=== PATIENT | male | born 1980 | race American Indian/Alaskan Native ===

== ENCOUNTER 2019-01-08 07:12 | Day surgery (SDC) | payer MEDICARE ==
[2019-01-08 07:59] LABS: Basophils % (Auto) 0.6 % (0.0-1.8); Eosinophils # (Auto) 0.4 K/mm3 (0.0-0.4); Hemoglobin 10.3 gm/dl (11.8-15.2); Lymphocytes # (Auto) 0.7 K/mm3 (1.2-5.4); Lymphocytes % (Auto) 12.2 % (13.4-35.0); Mean Corpuscular HGB Conc 32 % (32-34); Mean Corpuscular Volume 88 fl (84-94); Monocytes # (Auto) 0.5 K/mm3 (0.0-0.8); Platelet Count 225 K/mm3 (140-440); Red Blood Count 3.64 M/mm3 (3.65-5.03)
[2019-01-08] MEDS ORDERED: NACL 0.9% 500 ML 500 ML IV SCH (08:00)
[2019-01-08] MEDS ORDERED: NACL 0.9% 1000 ML 1,000 ML IV SCH (08:00)
[2019-01-08 08:12] LABS: INR 1.09 (0.87-1.13)
[2019-01-08 08:13] LABS: Calcium 7.6 mg/dL (8.4-10.2); Partial Thromboplastin Time 34.2 Sec. (24.2-36.6)
[2019-01-08] MEDS ORDERED: HEPARIN 10,000 UNITS/10 ML ONE (08:42)
[2019-01-08] MEDS ORDERED: SUBLIMAZE ONE ×2 (08:42→10:29)
[2019-01-08] MEDS ORDERED: HEPARIN/NS 5000 UNIT/500ML(CATH LAB) 1,000 ML IR ONE (08:42)
[2019-01-08] MEDS ORDERED: DILAUDID ONE ×2 (08:43→10:34)
[2019-01-08] MEDS ORDERED: ANCEF/STERILE WATER 2 GM/20 ML 2 GM/20 ML SYRINGE IV ONE (08:43)
[2019-01-08] MEDS ORDERED: NACL 0.9% 500 ML 0 ML ONE (08:43)
[2019-01-08] MEDS ORDERED: ZOFRAN ONE (08:44)
[2019-01-08] MEDS ORDERED: ZOFRAN IV NR ×2 (09:01→11:00)
[2019-01-08] MEDS ORDERED: DILAUDID IV NR (09:01)
--- NOTE | 2019-01-08 09:05 | Short Stay Summary ---
Short Stay Documentation Date of service: 01/08/19 Narrative H&P: 38 year old male with ESRD and HIV who presents for nonhealing ulceration of the bilateral lower extremity ulcers with swelling and elements of rest pain of the left lower extremity. Nonpalpable pedal pulses. - History Principal diagnosis: PVD with ulceration of both feet H&P: obtained from office Past Medical History: dialysis, ESRD, HIV/AIDS Past Surgical History: Other (AV access creation) - Allergies and Medications Current Medications: Allergies No Known Allergies Allergy (Unverified 01/08/19 07:13) Home Medications Medication Instructions Recorded Confirmed Last Taken Type Clindamycin HCl 300 mg PO TID 01/08/19 01/08/19 01/07/19 21:00 History 300mg Darunavir/Cobicistat (Nf) 1 tab PO DAILY 01/08/19 01/08/19 01/07/19 History [Prezcobix 800 mg-150 mg (Nf)] 1 tab Gabapentin [Neurontin] 600 mg PO HS 01/08/19 01/08/19 01/07/19 History 300mg Ibuprofen 800 mg PO TID 01/08/19 01/08/19 01/07/19 21:00 History 800mg Oxycodone HCl/Acetaminophen 1 tab PO Q6H 01/08/19 01/08/19 01/07/19 History [Percocet 7.5/325 mg] 1800 Raltegravir Potassium [Isentress 1 tab PO BID 01/08/19 01/08/19 01/07/19 History Hd] 1 tab Active Medications Hydromorphone HCl (Dilaudid) 0.5 mg IV ONCE ONE Stop: 01/08/19 09:02 Sodium Chloride (Nacl 0.9% 500 Ml) 500 mls @ 50 mls/hr IV DIRECT EDGARD Ondansetron HCl (Zofran) 4 mg IV ONCE ONE Stop: 01/08/19 09:02 - Physical exam General appearance: no acute distress Lungs: Normal air movement Gastrointestinal: normal Extremities: normal temperature, normal color, abnormal (nonpalpable pedal pulses) - Brief post op/procedure progress note Date of procedure: 01/08/19 Pre-op diagnosis: PVD with nonhealing lower extremity ulcerations Post-op diagnosis: same Procedure: revascularization of the left lower extremity Anesthesia: local (w/ conscious sedation) Surgeon: KISHAN SMITH Estimated blood loss: minimal Condition: stable - Hospital course Hospital course: Patient tolerated procedure well. - Disposition Condition at discharge: Stable Disposition: DC-01 TO HOME OR SELFCARE - Discharge Diagnoses (1) Atherosclerotic PVD with ulceration Status: Acute (2) ESRD (end stage renal disease) on dialysis Status: Acute (3) HIV (human immunodeficiency virus infection) Status: Acute Short Stay Discharge Plan Activity: advance as tolerated Weight Bearing Status: Weight Bear as Tolerated Diet: renal Wound: keep clean and dry, other (remove pressure dressing 01/09/19 in AM, take ASA and plavix daily, do not use heparin for the next 3 dialysis sessions, do not lift more than 10 lbs for 1 week, do not walk up stairs for one week, be careful with right groin/leg for one week) Follow up with: ENEDELIA MCINTOSH MD [Other] - 7 Days Forms: Post Arteriogram Instruct Prescriptions: Aspirin EC [Aspirin Enteric Coated TAB] 81 mg PO QDAY #30 tablet. oxyCODONE /ACETAMINOPHEN [Percocet 5/325 mg] 1 tab PO Q6HR PRN #20 tablet PRN Reason: Pain Clopidogrel [Plavix] 75 mg PO QDAY #30 tablet
[2019-01-08] MEDS: VERSED ONE ×6 (09:25→10:23)
[2019-01-08] MEDS: XYLOCAINE 2% INFILTRATI ONE ×2 (09:45→09:50)
[2019-01-08] MEDS: SUBLIMAZE ONE ×5 (09:48→10:23)
[2019-01-08] MEDS ORDERED: PLAVIX ONE (10:57)
[2019-01-08] MEDS ORDERED: BABY ASPIRIN ONE (10:57)
[2019-01-08] MEDS ORDERED: PERCOCET 5/325 ONE (11:31)
[2019-01-08] MEDS ORDERED: PERCOCET 5/325 PO NR (12:00)
--- NOTE | 2019-01-08 14:08 | Operative Report ---
Operative Report Operative Report: EXAM: 1. Ultrasound-guided access of the right common femoral artery. 2. Angiography of the lower extremity. 3. Selection of the abdominal aorta with angiography 4. Selection of the left external iliac artery, common femoral artery, superficial femoral artery, and popliteal artery with angiography of the left lower extremity 5. Deployment of a 6 mm spider EPD in the left below the knee popliteal artery 6. Atherectomy of the left fubwh-zrk-[id number] popliteal artery with a LS Hawkone device with angioplasty with a 6 mm x 80 mm iNPACT DCB 7. Atherectomy of the left distal superficial femoral artery with a LS Hawkone device with angioplasty with a 6 mm x 150 mm iNPACT DCB 8. Capture of the embolic protection device 9. Closure of the right common femoral artery with a 6 [place] Angio-Seal DATE: 01/08/19 TRAP SETTER: KISHAN SMITH MD INDICATION: 38-year-old male with nonpalpable pedal pulses with end-stage renal disease and HIV with nonhealing bilateral lower extremity wounds MEDICATIONS: Please see nursing report for full details. DEVICES: 6 mm spider EPD 6 mm x 80 mm iNPACT DCB 6 mm x 150 mm iNPACT DCB LS Hawkone device 6 Fr angioseal CONTRAST: Please see labels molder report for full details. PROCEDURE: The risks, benefits, and alternatives were discussed with the patient; written informed consent was obtained. The risks, benefits, and alternatives were discussed with the patient for drug-coated technology with critical limb ischemia; written informed consent was obtained. The patient was brought to the cath room and prepped and draped in sterile fashion with both points prepped and draped. The right common femoral artery was assessed with ultrasound was patent. Under direct ultrasound guidance, the right common femoral artery was accessed with a 21-gauge micropuncture needle. 0.018 inch wire was passed into the aorta. Needle was exchanged for a 5 [place] transitional dilator. Wire was exchanged for 0.035 inch wire. Transitional dilators exchange for 5 [place] sheath. Digital subtraction angiography was performed through the sheath demonstrating an appropriate puncture, above the bifurcation and below the inferior epigastric artery. The right external iliac artery, common femoral artery, profunda femoral artery, and proximal superficial femoral artery were patent. The access was appropriate, above the bifurcation and below the inferior epigastric artery. Digital subtraction angiography was performed to the sheath demonstrate the runoff. The right proximal and mid superficial femoral artery were patent. The distal superficial femoral artery had a focal 50% narrowing and the iwgwu-kvy-xxml popliteal artery had 2 focal 60% narrowing's, one in the mid pop liteal segment and 1 in the above the knee popliteal segment. The below the knee popliteal artery was patent. The anterior tibial artery, tibial peroneal trunk, posterior tibial artery, and peroneal artery were patent. The abdominal aorta was selected and digital subtraction angiography was performed demonstrating patency of the abdominal aorta. The renal arteries were diminutive in size compatible with end-stage renal disease. The bilateral common iliac artery have some peripheral calcifications which resulted in 10% narrowing. The right internal iliac artery has 30% peripheral calcification resulting in narrowing. The bilateral external iliac arteries are patent. The left external iliac artery selected and the left common femoral artery was selected. Digital subtraction angiography was performed demonstrating patency of the left common femoral artery, profunda femoral artery, and proximal superficial femoral artery. The superficial femoral artery was selected. Digital subtraction angiography was performed and ensuring patency of the mid superficial femoral artery. The distal superficial femoral artery had a 50% narrowing that spanned 5-6 cm within the vessel. The dgvkf-wgl-fbkj popliteal artery had a 50% narrowing that spanned 4-5 cm within the vessel. The rest the popliteal artery was patent. The anterior tibial artery, tibial peroneal trunk, posterior tibial artery, and peroneal artery were patent. Patient was heparinized. Sheath was exchanged for a 7 [place] 45 cm [place] destination positioned in the left proximal superficial femoral artery. 6 mm spider embolic protection device was deployed in the below the knee popliteal artery. Atherectomy was then performed of the cvuto-puj-oikd popliteal artery until he was less than 30% residual narrowing. Atherectomy was then performed of the distal superficial femoral artery until there was less than 30% residual narrowing. 6 mm x 150 mm iNPACT balloon was then used to perform angioplasty of the distal superficial femoral artery and 6 mm x 80 mm iNPACT balloon was then used to perform angioplasty of the pybga-dyx-fjfe popliteal artery. Digital subtraction angiography was performed demonstrating less than 10% residual narrowing of the distal superficial femoral artery and the popliteal artery. There is no distal embolization or significant embolic material in the embolic protection device. The embolic protection device was then retrieved. Digital subtraction angiography was performed demonstrating no distal embolization with unchanged runoff. At this point, all wires, catheters, and sheath was retracted the right external iliac artery. Sheath was exchanged for a 6 [place] Angio-Seal which was deployed achieving immediate hemostasis. Standard ultrasound was used to evaluate the site demonstrating appropriate closure. Sterile dressing applied. Pressure dressing applied. Patient tolerated the procedure well. No immediate postprocedural complication. Patient was loaded with aspirin and Plavix. FINDINGS: Please see procedure above. IMPRESSION: 1. Successful bilateral lower extremity angiography and abdominal aorta angiography. 2. Successful atherectomy and drug-coated angioplasty of the left superficial femoral artery and popliteal artery. 3. Successful closure with a 6 [place] Angio-Seal.
[2019-01-08 14:21] VITALS: BP 110/78
--- NOTE | 2019-01-08 18:59 | Vascular Lab Report ---
PROCEDURE: VL VENOUS DUPLEX LE LT HISTORY: swelling FINDINGS: Real-time ultrasound of the left leg was performed using grayscale and color Doppler images . These images demonstrate no evidence of deep thrombus in left common femoral vein, superficial femora l vein, popliteal vein or posterior tibial vein. IMPRESSION: No DVT in left leg This document is electronically signed by Ravinder Hernandez MD., January 08 2019 06:57:58 PM ET
== END 2019-01-08 14:50 | disposition home or self-care (01) ==
LOC: CATHLABREC 07:12
PROVIDERS: ATTEND Radiology Diagnostic Radiology
DX: I87.333 Chronic venous hypertension (idiopathic) with ulcer and inflammation of bilateral lower extremity (principal); I70.203 Unspecified atherosclerosis of native arteries of extremities, bilateral legs; N18.6 End stage renal disease; I50.9 Heart failure, unspecified; K21.9 Gastro-esophageal reflux disease without esophagitis; Z99.2 Dependence on renal dialysis; Z79.899 Other long term (current) drug therapy; Z79.82 Long term (current) use of aspirin; Z98.890 Other specified postprocedural states
CPT/HCPCS: 36415; 37225; 75630; 75716; 76937; 80048; 85025; 85610; 85730; 93971; 96374; 96375; 99156; 99157; C1714; C1760; C1769; C1884; C1887; C2623; J0690; J1170; J1644; J2250; J2405; J3010; J7040; Q9967

== ENCOUNTER 2019-01-23 07:02 | Day surgery (SDC) | payer MEDICARE ==
[2019-01-23] MEDS ORDERED: SUBLIMAZE ONE (07:24)
[2019-01-23] MEDS ORDERED: DIPRIVAN 10 MG/ML IV ONE ×5 (07:24→07:40)
[2019-01-23] MEDS ORDERED: VERSED ONE ×2 (07:24→08:48)
[2019-01-23 07:58] LABS: INR 1.05 (0.87-1.13)
[2019-01-23 07:59] LABS: Partial Thromboplastin Time 34.7 Sec. (24.2-36.6)
[2019-01-23 08:11] LABS: Hematocrit 33.9 % (35.5-45.6); Hemoglobin 10.8 gm/dl (11.8-15.2); Mean Corpuscular HGB Conc 32 % (32-34); Mean Corpuscular Volume 88 fl (84-94); Platelet Count 225 K/mm3 (140-440); Red Blood Count 3.84 M/mm3 (3.65-5.03); Red Cell Distribution Width 19.2 % (13.2-15.2)
[2019-01-23] MEDS ORDERED: HEPARIN/NS 5000 UNIT/500ML(CATH LAB) 1,000 ML IR ONE (08:21)
[2019-01-23] MEDS ORDERED: HEPARIN/NS 5000 UNIT/500ML(CATH LAB) 500 ML IR ONE (08:21)
[2019-01-23] MEDS ORDERED: HEPARIN 10,000 UNITS/10 ML ONE (08:21)
[2019-01-23] MEDS ORDERED: XYLOCAINE 2% INFILTRATI ONE (08:21)
[2019-01-23] MEDS ORDERED: ANCEF/STERILE WATER 2 GM/20 ML 2 GM/20 ML SYRINGE IV ONE (08:21)
--- NOTE | 2019-01-23 08:27 | Short Stay Summary ---
Short Stay Documentation Date of service: 01/23/19 Narrative H&P: 38 year old male with ESRD with lower extremity CLI who is s/p left lower extremity revascularization who now presents for right lower extremity revascularization. - History Principal diagnosis: atherosclerosis with gangrene H&P: obtained from office - Allergies and Medications Current Medications: Allergies No Known Allergies Allergy (Unverified 01/08/19 07:13) Home Medications Medication Instructions Recorded Confirmed Last Taken Type Aspirin EC [Aspirin Enteric Coated 81 mg PO QDAY #30 tablet. 01/08/19 01/23/19 01/22/19 Rx TAB] 81mg Clopidogrel [Plavix] 75 mg PO QDAY #30 tablet 01/08/19 01/23/19 01/22/19 Rx 75mg Darunavir/Cobicistat (Nf) 1 tab PO DAILY 01/08/19 01/23/19 01/22/19 History [Prezcobix 800 mg-150 mg (Nf)] 1 tab Gabapentin [Neurontin] 600 mg PO HS 01/08/19 01/23/19 01/22/19 History 600mg Ibuprofen 800 mg PO TID 01/08/19 01/23/19 01/22/19 History 800mg Oxycodone HCl/Acetaminophen 1 tab PO Q6H 01/08/19 01/23/19 01/22/19 History [Percocet 7.5/325 mg] 1 tab Raltegravir Potassium [Isentress 1 tab PO BID 01/08/19 01/23/19 01/22/19 History Hd] 1 tab Active Medications Sodium Chloride (Nacl 0.9% 500 Ml) 500 mls @ 50 mls/hr IV DIRECT EDGARD - Physical exam General appearance: no acute distress Lungs: Normal air movement Gastrointestinal: normal Extremities: normal temperature, normal color, abnormal (swelling of the lower extremities ; left lower extremity is painful if elevated) - Brief post op/procedure progress note Date of procedure: 01/23/19 Pre-op diagnosis: CLI right lower extremity Post-op diagnosis: same Procedure: revascularization RLE Anesthesia: MAC Surgeon: KISHAN SMITH Estimated blood loss: minimal Condition: stable - Hospital course Hospital course: After 2 hrs can be discharged - Disposition Condition at discharge: Stable Disposition: DC- TO HOME OR SELFCARE - Discharge Diagnoses (1) Atherosclerotic PVD with ulceration Status: Acute (2) ESRD (end stage renal disease) on dialysis Status: Acute (3) HIV (human immunodeficiency virus infection) Status: Acute Short Stay Discharge Plan Activity: advance as tolerated Weight Bearing Status: Weight Bear as Tolerated Diet: renal Wound: keep clean and dry, other (remove pressure dressing 01/24/19 in AM ; avoid heparin for next 3 dialysis sessions) Follow up with: ENEDELIA FISHER MD [Primary Care Provider] - 7 Days Forms: Outpatient Surgery DC Inst. Prescriptions: Oxycodone HCl/Acetaminophen [Percocet 7.5/325 mg] 1 each PO Q6HR PRN #40 tablet PRN Reason: Pain
[2019-01-23] MEDS: NACL 0.9% 500 ML 500 ML IV SCH ×2 (08:29→08:43)
--- NOTE | 2019-01-23 10:14 | Anesthesia Day of Surgery ---
Anesthesia Day of Surgery - Day of Surgery Patient Examined: Yes Patient H&P Reviewed: Yes Patient is NPO: Yes
--- NOTE | 2019-01-23 10:14 | Anesthesia Consultation ---
Anesthesia Consult and Med Hx Date of service: 01/23/19 - Airway Anesthetic Teeth Evaluation: Good ROM Head & Neck: Adequate Mental/Hyoid Distance: Adequate Mallampati Class: Class II Intubation Access Assessment: Probably Good - Pulmonary Exam CTA: Yes - Cardiac Exam Cardiac Exam: RRR - Pre-Operative Health Status ASA Pre-Surgery Classification: ASA3 Proposed Anesthetic Plan: MAC - Pulmonary Hx Smoking: No Hx Respiratory Symptoms: No - Cardiovascular System Hx Hypertension: Yes (past hx; resolved per patient) Hx Heart Attack/AMI: No Hx Peripheral Vascular Disease: Yes (s/p revascularization procedure 12/2018) - Central Nervous System CVA: Yes Hx Psychiatric Problems: No - Endocrine Hx End Stage Renal Disease: Yes (last HD 01/22/19) Hx Liver Disease: No Hx Insulin Dependent Diabetes: No Hx Non-Insulin Dependent Diabetes: No Hx Thyroid Disease: No - Additional Comments Anesthesia Medical History Comments: Hx HIV on ARVs.
[2019-01-23] MEDS ORDERED: PERCOCET 5/325 PO ONE ×2 (11:00→13:24)
--- NOTE | 2019-01-23 11:02 | Post Operative Note ---
Date of procedure: 01/23/19 Pre-op diagnosis: CLI RLE Post-op diagnosis: same Procedure: endovascular revascularization of the right lower extremity Anesthesia: MAC Surgeon: KISHAN SMITH Estimated blood loss: minimal Condition: stable Disposition: floor
[2019-01-23 11:09] LABS: Anisocytosis 1+; Basophils % (Manual) 0 % (0.0-1.8); Large Platelets Rare; Platelet Estimate Consistent w Auto; Total Cells Counted 100
[2019-01-23 12:07] VITALS: BP 101/69
--- NOTE | 2019-01-23 12:57 | Post Anesthesia Evaluation ---
- Post Anesthesia Evaluation Patient Participated: Yes Airway Patent: Yes Stable Respiratory Function: Yes Nausea/Vomiting: No Temp > 96.8F: Yes Pain Manageable: Yes Adequeate Hydration: Yes Anesthesia Complications: No
--- NOTE | 2019-01-23 15:56 | Operative Report ---
Operative Report Operative Report: EXAM: 1. Ultrasound-guided access of the left common femoral artery. 2. Angiography of the left lower extremity. 3. Selection of the abdominal aorta with angiography 4. Selection of the external iliac artery, common femoral artery, superficial femoral artery, and popliteal artery with angiography of the right lower extremity 5. Deployment of a 7 mm spider EPD in the right below the knee popliteal artery 6. Atherectomy of the right popliteal artery with a LS Hawkone device with angioplasty with a 6 mm x 150 mm iNPACT DCB 7. Atherectomy of the right distal superficial femoral artery with a LS Hawkone device with angioplasty with a 6 mm x 80 mm iNPACT DCB 8. Capture of the embolic protection device 9. Closure of the left common femoral artery with a 6 [place] Angio-Seal DATE: 01/23/19 LEAD MASON TENDER: KISHAN SMITH MD INDICATION: 38-year-old male with nonpalpable pedal pulses with end-stage renal disease and HIV with nonhealing bilateral lower extremity wounds with critical limb ichemia of the right lower extremity. MEDICATIONS: Please see nursing report for full details. DEVICES: 6 mm spider EPD 6 mm x 80 mm iNPACT DCB 6 mm x 150 mm iNPACT DCB LS Hawkone device 6 Fr angioseal CONTRAST: Please see molder labels report for full details. PROCEDURE: The risks, benefits, and alternatives were discussed with the patient; written informed consent was obtained. The risks, benefits, and alternatives were discussed with the patient for drug-coated technology with critical limb ischemia; written informed consent was obtained. The patient was brought to the cath room and prepped and draped in sterile fashion with both points prepped and draped. The left common femoral artery was assessed with ultrasound was patent. Under direct ultrasound guidance, the left common femoral artery was accessed with a 21-gauge micropuncture needle. 0.018 inch wire was passed into the aorta. Needle was exchanged for a 5 [place] transitional dilator. Wire was exchanged for 0.035 inch wire. Transitional dilators exchange for 5 [place] sheath. Digital subtraction angiography was performed through the sheath demonstrating an appropriate puncture, above the bifurcation and below the inferior epigastric artery. The left external iliac artery, common femoral artery, profunda femoral artery, and proximal superficial femoral artery were patent. The access was appropriate, above the bifurcation and below the inferior epigastric artery. The abdominal aorta was selected and digital subtraction angiography was performed demonstrating patency of the abdominal aorta. The renal arteries were diminutive in size compatible with end-stage renal disease. The bilateral common iliac artery have some peripheral calcifications which resulted in 10% narrowing. The right internal iliac artery has 30% peripheral calcification resulting in narrowing. The bilateral external iliac arteries are patent. The right external iliac artery selected and the left common femoral artery was selected. The superficial femoral artery was selected. Digital subtraction angiography was performed. The right common femoral artery, profunda femoral artery, and proximal and mid superficial femoral artery were patent. The distal superficial femoral artery had a focal 70-80% narrowing and the sbtrs-fej-usxm popliteal artery had 2 focal 60% narrowing's, one in the mid popliteal segment and 1 in the above the knee popliteal segment. The below the knee popliteal artery was patent. The anterior tibial artery, tibial peroneal trunk, posterior tibial artery, and peroneal artery were patent. Patient was heparinized. Sheath was exchanged for a 7 [place] 65 cm [place] destination positioned in the right mid superficial femoral artery. 7 mm spider embolic protection device was deployed in the below the knee popliteal artery. Atherectomy was then performed of the distal superficial femoral artery and popliteal artery until there was less than 30% residual narrowing. 6 mm x 150 mm iNPACT balloon was then used to perform angioplasty of the popliteal artery and 6 mm x 80 mm iNPACT balloon was then used to perform angioplasty of the distal superficial femoral artery. Digital subtraction angiography was performed demonstrating less than 10% residual narrowing of the distal superficial femoral artery and the popliteal artery. There is no distal embolization. There was debris in the embolic protection device. The embolic protection device was then retrieved with a 6 Fr guide catheter. Digital subtraction angiography was performed demonstrating no distal embolization with unchanged runoff. At this point, all wires, catheters, and sheath was retracted the left external iliac artery. Sheath was exchanged for a 6 [place] Proglide which was deployed achieving immediate hemostasis. Sterile dressing applied. Pressure dressing applied. Patient tolerated the procedure well. No immediate postprocedural complication. FINDINGS: Please see procedure above. IMPRESSION: 1. Successful bilateral lower extremity angiography and abdominal aorta angiography. 2. Successful atherectomy and drug-coated angioplasty of the right superficial femoral artery and popliteal artery. 3. Successful closure with a 6 [place] Angio-Seal.
== END 2019-01-23 13:30 | disposition home or self-care (01) ==
LOC: CATHLABREC 07:02
PROVIDERS: ATTEND Radiology Diagnostic Radiology
DX: I70.261 Atherosclerosis of native arteries of extremities with gangrene, right leg (principal); I70.232 Atherosclerosis of native arteries of right leg with ulceration of calf; I70.242 Atherosclerosis of native arteries of left leg with ulceration of calf; I83.002 Varicose veins of unspecified lower extremity with ulcer of calf; I13.2 Hypertensive heart and chronic kidney disease with heart failure and with stage 5 chronic kidney disease, or end stage renal disease; N18.6 End stage renal disease; I50.9 Heart failure, unspecified; K21.9 Gastro-esophageal reflux disease without esophagitis; B20 Human immunodeficiency virus [HIV] disease; Z99.2 Dependence on renal dialysis; Z98.890 Other specified postprocedural states; Z79.899 Other long term (current) drug therapy; Z79.82 Long term (current) use of aspirin; Z86.73 Personal history of transient ischemic attack (TIA), and cerebral infarction without residual deficits
CPT/HCPCS: 36415; 37225; 75625; 75716; 76937; 80048; 85007; 85025; 85610; 85730; C1714; C1760; C1769; C1887; C2623; J0690; J1644; J2250; J2704; J3010; J7040; 75710; Q9967

== ENCOUNTER 2019-07-22 10:05 | Day surgery (SDC) | payer MEDICARE ==
--- NOTE | 2019-07-22 11:13 | Anesthesia Consultation ---
Anesthesia Consult and Med Hx Date of service: 07/22/19 - Airway Anesthetic Teeth Evaluation: Good ROM Head & Neck: Adequate Mental/Hyoid Distance: Adequate Mallampati Class: Class II Intubation Access Assessment: Probably Good - Pulmonary Exam CTA: Yes - Cardiac Exam Cardiac Exam: RRR - Pre-Operative Health Status ASA Pre-Surgery Classification: ASA3 Proposed Anesthetic Plan: MAC - Pulmonary Hx Smoking: No Hx Respiratory Symptoms: No - Cardiovascular System Hx Hypertension: Yes (past hx; now resolved. No antihypertensives.) Hx Heart Attack/AMI: No Hx Percutaneous Transluminal Coronary Angioplasty (PTCA): No Hx Cardia Arrhythmia: No Hx Peripheral Vascular Disease: Yes - Central Nervous System CVA: No - Gastrointestinal Hx Gastroesophageal Reflux Disease: No - Endocrine Hx End Stage Renal Disease: Yes (last HD 07/21) Hx Liver Disease: No Hx Insulin Dependent Diabetes: No Hx Non-Insulin Dependent Diabetes: No Hx Thyroid Disease: No - Hematic Hx Anemia: Yes - Other Systems Hx Obesity: No - Additional Comments Anesthesia Medical History Comments: Hx HIV on ARVs. Procedure originally scheduled for 1 wk ago but cancelled 2/2 hyperkalemia. Will recheck K+ today prior to procedure.
--- NOTE | 2019-07-22 11:14 | Anesthesia Day of Surgery ---
Anesthesia Day of Surgery - Day of Surgery Patient Examined: Yes Patient H&P Reviewed: Yes Patient is NPO: Yes
[2019-07-22] MEDS ORDERED: ONDANSETRON 4 MG/2 ML INJ IV ONE (11:24)
[2019-07-22 11:28] LABS: Hematocrit 28.3 % (35.5-45.6); Hemoglobin 9.1 gm/dl (11.8-15.2); Mean Corpuscular HGB Conc 32 % (32-34); Mean Corpuscular Volume 86 fl (84-94); Platelet Count 253 K/mm3 (140-440); Red Blood Count 3.29 M/mm3 (3.65-5.03)
[2019-07-22 11:38] LABS: INR 1.12 (0.87-1.13)
[2019-07-22 11:39] LABS: Partial Thromboplastin Time 33.8 Sec. (24.2-36.6)
[2019-07-22] MEDS ORDERED: LIDOCAINE 1%/EPINEPHRINE 1:100,000 VIAL (20 ML) INFILTRATI ONE (11:39)
[2019-07-22] MEDS ORDERED: HEPARIN 10,000 UNITS/10 ML VIAL ONE (11:39)
[2019-07-22] MEDS ORDERED: HEPARIN/NS 5000 UNIT/500ML 1,500 ML IR ONE (11:39)
[2019-07-22 11:48] LABS: Calcium 8.8 mg/dL (8.4-10.2)
[2019-07-22] MEDS ORDERED: fentaNYL 100 MCG/2 ML INJ ONE (11:54)
[2019-07-22] MEDS ORDERED: MIDAZOLAM 2 MG/2 ML INJ ONE (11:54)
[2019-07-22] MEDS ORDERED: KETAMINE/STERILE WATER 50 MG/ML SYRINGE ONE (11:55)
[2019-07-22] MEDS ORDERED: PROPOFOL 200 MG/20 ML VIAL IV ONE ×3 (11:55→12:33)
[2019-07-22] MEDS ORDERED: LIDOCAINE MPF (2%) 20 MG/1 ML VIAL 5 ML ONE (11:57)
[2019-07-22] MEDS ORDERED: ePHEDrine SULFATE 50 MG/1 ML INJ ONE (11:58)
[2019-07-22] MEDS ORDERED: SODIUM CHLORIDE 0.9% 1000 ML 1,000 ML ONE (12:11)
[2019-07-22] MEDS ORDERED: HYDROmorphone 1 MG/1 ML INJ ONE (12:21)
[2019-07-22] MEDS ORDERED: ceFAZolin/Water 2 GM/20 ML 2 GM/20 ML SYRINGE IV ONE (12:22)
[2019-07-22 12:23] LABS: Basophils % (Manual) 0 % (0.0-1.8); Total Cells Counted 100
[2019-07-22 12:24] LABS: Anisocytosis 1+; Platelet Estimate Consistent w Auto
--- NOTE | 2019-07-22 13:46 | Short Stay Summary ---
Short Stay Documentation Date of service: 07/22/19 Narrative H&P: 39 year old male with ESRD and AVF malfunction who presents for AV access evaluation. - History Principal diagnosis: AV access malfunction Past Medical History: dialysis, ESRD, HIV/AIDS, other (LE wounds) Past Surgical History: Other (lower extremity venous closure and arterial revascularization) - Allergies and Medications Current Medications: Allergies No Known Allergies Allergy (Verified 07/22/19 10:20) Home Medications Medication Instructions Recorded Confirmed Last Taken Type Aspirin EC [Halfprin EC] 81 mg PO QDAY #30 tablet. 01/08/19 07/22/19 07/21/19 Rx 81 mg Clopidogrel [Plavix] 75 mg PO QDAY #30 tablet 01/08/19 07/22/19 07/21/19 Rx 75 mg Darunavir/Cobicistat (Nf) 1 tab PO DAILY 01/08/19 07/22/19 07/21/19 History [Prezcobix 800 mg-150 mg (Nf)] 1 Gabapentin [Neurontin] 600 mg PO HS 01/08/19 07/22/19 07/21/19 History 600 mg Ibuprofen 800 mg PO TID 01/08/19 07/22/19 07/22/19 History 800 mg Raltegravir Potassium [Isentress 1 tab PO BID 01/08/19 07/22/19 07/21/19 History Hd] 1 Oxycodone HCl/Acetaminophen 1 each PO Q6HR PRN #40 tablet 01/23/19 07/22/19 07/21/19 Rx [Percocet 7.5/325 mg] 1 - Physical exam General appearance: no acute distress Lungs: Normal air movement Gastrointestinal: normal Extremities: abnormal (no thrill in LUE AV access) - Brief post op/procedure progress note Date of procedure: 07/22/19 Pre-op diagnosis: AV access malfunction Post-op diagnosis: same Procedure: 1. Ultrasound guided access of the left upper extremity AV graft towards the venous anastamosis 2. Fistolagram 3. Thrombectomy of the AV graft with balloon sweeping of the AV graft 4. Angioplasty of the central portion of the graft and mid graft with a 7 mm x 200 mm angioplasty balloon and 8 mm x 80 mm angioplasty balloon 5. Ultrasound guided access of the left upper extremity AV graft towards the arterial anastamosis 6. Selection of the brachial artery in a retrograde fashion, angiography of the left upper extremity 7. Angioplasty of the arterial anastamosis, and peripheral portion of the graft with a 6 mm x 80 mm angioplasty balloon and 6 mm x 40 mm angioplasty balloon 8. Angioplasty of the central portion of the graft and mid graft with an 8 mm x 40 mm angiosculpt balloon Anesthesia: MAC Surgeon: KISHAN SMITH Estimated blood loss: minimal Condition: stable - Hospital course Hospital course: Tolerated procedure well. No issues. - Disposition Condition at discharge: Stable Disposition: DC-01 TO HOME OR SELFCARE - Discharge Diagnoses (1) AV graft thrombosis Status: Acute (2) ESRD (end stage renal disease) on dialysis Status: Acute (3) HIV (human immunodeficiency virus infection) Status: Acute Short Stay Discharge Plan Activity: advance as tolerated Weight Bearing Status: Weight Bear as Tolerated Diet: renal Wound: keep clean and dry, other (come to office in the next 2-7 days for stitch removal) Follow up with: PRIMARY CAREMD [Primary Care Provider] - 7 Days
--- NOTE | 2019-07-22 13:52 | Operative Report ---
Operative Report Operative Report: EXAM: 1. Ultrasound guided access of the left upper extremity AV graft towards the venous anastamosis 2. Fistolagram 3. Mechanical thrombectomy of the AV graft with sweeping of the AV graft 4. Angioplasty of the central portion of the graft and mid graft with a 7 mm x 200 mm angioplasty balloon and 8 mm x 80 mm angioplasty balloon 5. Ultrasound guided access of the left upper extremity AV graft towards the arterial anastamosis 6. Selection of the brachial artery in a retrograde fashion, angiography of the left upper extremity 7. Angioplasty of the arterial anastamosis, and peripheral portion of the graft with a 6 mm x 60 mm angioplasty balloon and 6 mm x 40 mm angioplasty balloon 8. Angioplasty of the central portion of the graft and mid graft with an 8 mm x 40 mm angiosculpt balloon INDICATION: THROMBOSED LEFT ARM AV GRAFT WITH END-STAGE RENAL DISEASE. DATE: 07/22/19 MEDICATIONS: Please refer to nursing documentation for complete list of medications and heparin administration. VERSED AND FENTANYL TITRATED TO MODERATE SEDATION. THE PATIENT WAS MONITORED UNDER CONTINUOUS CARDIOPULMONARY MONITORING THROUGHOUT THE CASE. COMPLICATIONS: NONE IMMEDIATE REVENUE ANALYST: KISHAN SMITH MD PROCEDURE: The procedure was discussed with the patient and the risks, benefits, and alternatives were discussed with the patient. Informed consent was obtained. The patient was transported into the angiography suite in stable condition and placed on the angiographic table. The left arm was assessed under real-time ultrasound which demonstrated a thrombosed left arm AV graft. The patient was prepped and draped in a sterile fashion. Lidocaine was used to anesthetize the skin. Under ultrasound guidance, the AV graft was punctured with the needle pointing towards the venous limb. 0.018 inch wire was advanced through the needle and this was exchanged for a transitional dilator. The inner dilator and wire were removed and a 0.035 inch [place] wire was advanced through the transitional dilator. The dilator was exchanged for a 6 [place] short sheath. Angled catheter was advanced over the wire and the wire was advanced into the inferior vena cava under fluoroscopic guidance. Then the wire was removed and the Angled catheter was used to perform a pullback venogram. Digital subtraction venography was performed in the left brachiocephalic vein which demonstrated no central obstruction to flow. Since there was some blood that could be aspirated, gentle angiography was performed demonstrating intermittent short segment high-grade 99% narrowing within the graft intermixed with thrombus. 7 mm angioplasty balloon was inflated and then used to sweep from the venous sheath to the central veins. Afterwards, 7 mm x 200 mm angioplasty balloon is used perform angioplasty throughout the entirety of the central and mid AV graft to the sheath. Digital subtraction angiography demonstrated some mild residual narrowing and an 8 mm x 80 mm angioplasty balloon was used perform angioplasty of the central and mid AV graft to the sheath. Digital subtraction angiography demonstrated resolution of narrowing. The arm was then punctured towards the arterial anastomosis under ultrasound guidance. 0.018 inch wire was advanced through the needle and exchanged for transitional dilator. The inner dilator and wire were removed and a 0.035 inch Glidewire was advanced to the transitional dilator. The dilator was exchanged for 6 [place] short sheath. The angled catheter was advanced over the 0.035 wire and the wire was advanced into the crow brachial artery in a retrograde fashion. Digital subtraction angiography was performed which demonstrated patency of the brachial artery proximal and distal to the anastomosis with sluggish minimal flow in the graft. 6 mm x 60 mm angioplasty balloon is used perform angioplasty of the peripheral portion of the AV graft, but due to the residual narrowing, 6 mm x 40 mm [place] was used to perform repeat angioplasty at the anastomosis and then throughout the peripheral portion of the AV graft. Blood was aspirated from both sheaths. Angled catheter is used to select the brachial artery and retrograde fashion and digital subtraction angiography demonstrated prompt flow through the peripheral dialysis access into the graft. The peripheral portion of the dialysis access had less than 20% residual narrowing. Repeat digital subtraction angiography demonstrated 30-40% recoil of the mid and distal portions of the graft. Through the sheath oriented towards the venous outflow, the wire was exchanged for a 0.018 inch wire and an 8 mm x 40 mm angiosculpt cutting balloon was used to perform angioplasty of the central graft and mid graft. Digital subtraction angiography afterwards demonstrated resolution of narrowing and no residual recoil. All the wires were removed. 3-0 Vicryl sutures were used to close the fistula access sites. Dermabond was applied. Pressure was held until hemostasis was achieved. The patient was then transferred to the outpatient recovery area. FINDINGS: Please see the procedure note for the findings. IMPRESSION: 1. Successful mechanical thrombectomy of the thrombosed left AV graft with balloon sweeping. 2. Angioplasty of the peripheral dialysis access.
[2019-07-22] MEDS ORDERED: oxyCODONE /ACETAMINOPHEN 5-325MG TAB PO ONE (15:29)
[2019-07-22] MEDS ORDERED: HYDROmorphone 1 MG/1 ML INJ IV ONE (16:03)
[2019-07-22 16:42] VITALS: BP 89/57
== END 2019-07-22 16:30 | disposition home or self-care (01) ==
LOC: CATHLABREC 10:05
PROVIDERS: ATTEND Radiology Diagnostic Radiology
DX: T82.868A Thrombosis due to vascular prosthetic devices, implants and grafts, initial encounter (principal); I13.2 Hypertensive heart and chronic kidney disease with heart failure and with stage 5 chronic kidney disease, or end stage renal disease; N18.6 End stage renal disease; I50.9 Heart failure, unspecified; I73.9 Peripheral vascular disease, unspecified; B20 Human immunodeficiency virus [HIV] disease; G62.9 Polyneuropathy, unspecified; K21.9 Gastro-esophageal reflux disease without esophagitis; Z98.890 Other specified postprocedural states; Z79.899 Other long term (current) drug therapy; Z79.82 Long term (current) use of aspirin; Y92.89 Other specified places as the place of occurrence of the external cause; Y83.2 Surgical operation with anastomosis, bypass or graft as the cause of abnormal reaction of the patient, or of later complication, without mention of misadventure at the time of the procedure
CPT/HCPCS: 36415; 36905; 76937; 80048; 85007; 85025; 85610; 85730; 96374; 96375; C1725; C1751; C1769; C1894; J0690; J1170; J1644; J2250; J2405; J2704; J3010; J7030; Q9967